=== PATIENT | female | born 1995 | race African-American/Black ===

== ENCOUNTER 2020-02-05 20:34 | Emergency (ER) | payer OTHER ==
[~2020-02-05] VITALS: Ht 170.2 cm; Wt 54.4 kg
[2020-02-05 20:38] VITALS: BP 108/56; Ht 170.2 cm; Wt 54.4 kg
[2020-02-06 00:03] LABS: UA SPECIFIC GRAVITY >=1.030 (1.005-1.035); microscopic required? YES; urine erythrocyte NEGATIVE (NEGATIVE)
== END 2020-02-06 02:15 | disposition left against medical advice (07) ==
LOC: ED 20:34
PROVIDERS: Emergency Medicine
DX: O26.891 Other specified pregnancy related conditions, first trimester (principal); R11.2 Nausea with vomiting, unspecified; Z13.9 Encounter for screening, unspecified; Z3A.08 8 weeks gestation of pregnancy